=== PATIENT | female | born 1970 | race Native Hawaiian/Other Pacific Islander ===

== ENCOUNTER 2019-12-27 14:02 | Emergency (ER) | payer BC ==
[~2019-12-27] VITALS: Ht 175.3 cm; Wt 85.3 kg
[~2019-12-27 14:02] MED LIST: ARAVA PO; CETI10TA PO; CETRAXAL0.2 % OT; CLINDAMYCIN300 MG OR; FEXOFENADINE H180 MG PO; FLUT0.05 NAS; INDERAL LA60 MG PO; PRILOSEC OTC20 MG OR; ULTRACET1 TAB OR
[2019-12-27 14:51] LABS: PLATELET COUNT 250 K/uL (152-353)
[2019-12-27 15:51] LABS: POTASSIUM 3.3 mmol/L (3.6-5.2); SODIUM 141 mmol/L (136-145)
[2019-12-27 19:20] VITALS: BP 116/70; TEMP 98.9
== END 2019-12-27 19:20 | disposition home or self-care (01) ==
LOC: ED 14:02
PROVIDERS: Family Medicine
DX: E87.6 Hypokalemia (principal); B34.9 Viral infection, unspecified; R00.1 Bradycardia, unspecified
CPT/HCPCS: 36415; 80053; 83605; 84484; 85027; 85379; 87040; 87502; 87651; 93005; 96365; 96375; 99284; J0456; J1885

== ENCOUNTER 2020-04-29 10:09 | Day surgery (SDC) | payer BC ==
[~2020-04-29] VITALS: Ht 30.5 cm; Wt 0.5 kg
== END 2020-04-29 12:25 | disposition home or self-care (01) ==
LOC: OR 10:09
PROVIDERS: ATTEND Internal Medicine Gastroenterology
PROC: 0DB68ZZ Excision of Stomach, Via Natural or Artificial Opening Endoscopic (ICD-10-PCS; principal; 2020-04-29)
PROC: 0DB88ZZ Excision of Small Intestine, Via Natural or Artificial Opening Endoscopic (ICD-10-PCS; 2020-04-29)
DX: K29.50 Unspecified chronic gastritis without bleeding (principal); K21.00 Gastro-esophageal reflux disease with esophagitis, without bleeding; K92.2 Gastrointestinal hemorrhage, unspecified
CPT/HCPCS: J2001; J2704; J7120